=== PATIENT | female | born 1995 | race African-American/Black ===

== ENCOUNTER 2017-09-22 11:34 | Emergency (ER) | payer SELFPAY ==
[2017-09-22 13:31] LABS: Bilirubin Negative (Negative); Blood, Urine Negative (Negative); Glucose, Urine (Dipstick) Negative (Negative); Ketone, Urine 40 mg/dL (Negative); Nitrite Negative (Negative); Protein, Urine (Dipstick) Negative (Neg-Trace); Urobilinogen 0.2 mg/dL (0.2-1.0)
[2017-09-22 13:33] LABS: Bacteria/HPF Rare-Few HPF (None Seen); Hyaline Casts/LPF 0-3 HYALINE CAST LPF (0-3 Hyaline)
[2017-09-22 13:53] LABS: RBC/HPF 0-3 HPF (0-3)
[2017-09-22] MEDS ORDERED: Lidocaine 1% PF 5 ML VIAL ONE (14:14)
[2017-09-22] MEDS ORDERED: Azithromycin 250 MG TAB ONE (14:14)
[2017-09-22] MEDS ORDERED: cefTRIAXone\\ROCEPHIN 250 MG VIAL ONE (14:14)
== END 2017-09-22 14:22 | disposition home or self-care (01) ==
LOC: ERS 11:34
DX: N72 Inflammatory disease of cervix uteri (principal); F41.9 Anxiety disorder, unspecified; F32.9 Major depressive disorder, single episode, unspecified
CPT/HCPCS: 81003; 81015; 81025; 87086; 87480; 87491; 87510; 87591; 87660; 96372; J0696; J2001

== ENCOUNTER 2018-09-19 10:29 | Emergency (ER) | payer SELFPAY | END 2018-09-19 12:05 | disposition home or self-care (01) | LOC: ERS 10:29 | DX: J06.9 Acute upper respiratory infection, unspecified (principal) | CPT/HCPCS: 99283 ==

== ENCOUNTER 2018-09-22 01:00 | Emergency (ER) | payer SELFPAY ==
[2018-09-22] MEDS ORDERED: Dexamethasone 10 MG/ML VIAL ONE (01:23)
== END 2018-09-22 02:18 | disposition home or self-care (01) ==
LOC: ERS 01:00
DX: J06.9 Acute upper respiratory infection, unspecified (principal)
CPT/HCPCS: 87081; 87430; 96372; J1100

== ENCOUNTER 2019-08-07 12:23 | Emergency (ER) | payer SELFPAY ==
[2019-08-07] MEDS ORDERED: Acetaminophen 500 MG TAB ONE (13:27)
--- NOTE | 2019-08-07 13:43 | CT ---
CT Brain WO Con: 08/07/2019 1:23 PM CLINICAL HISTORY: Sudden headache. COMPARISON: None. FINDINGS: Hemorrhage: None. Ventricular system: Normal in size and morphology for the patient's age. Cerebral parenchyma: Normal Midline shift: None. Mass: No mass effect. Calvarium: Normal. Visualized Paranasal sinuses: Clear. IMPRESSION: No acute intracranial abnormalities.
== END 2019-08-07 14:20 | disposition left against medical advice (07) ==
LOC: SCSER 12:23
DX: R51 Headache (principal)
CPT/HCPCS: 70450

== ENCOUNTER 2019-08-07 18:43 | Emergency (ER) | payer SELFPAY | END 2019-08-07 20:20 | disposition home or self-care (01) | LOC: SCSER 18:43 | DX: R51 Headache (principal) | CPT/HCPCS: 99283 ==

== ENCOUNTER 2019-08-31 20:02 | Emergency (ER) | payer SELFPAY | END 2019-08-31 21:51 | disposition home or self-care (01) | LOC: ERS 20:02 | DX: K03.81 Cracked tooth (principal); F41.9 Anxiety disorder, unspecified; Z79.899 Other long term (current) drug therapy | CPT/HCPCS: 99282 ==

== ENCOUNTER 2020-10-05 14:57 | Emergency (ER) | payer SELFPAY ==
[2020-10-05] MEDS ORDERED: Ondansetron PF 4 MG/2 ML Vial ONE (15:28)
[2020-10-05 15:49] LABS: #Basophils 0.1 thou/uL (0.0-0.2); #Eosinphils 0.2 thou/uL (0.0-0.7); #Lymphocytes 2.5 thou/uL (1.20-3.40); #Monocytes 0.9 thou/uL (0.11-0.59); #Neutrophils 8.2 thou/uL (1.40-6.50); %Basophils 0.4 % (0.0-1.0); %Eosinophils 1.6 % (0.0-10.0); %Lymphocytes 21.1 % (21.0-51.0); %Monocytes 7.8 % (0.0-10.0); %Neutrophils 69.1 % (42.0-75.0); Hemoglobin 12.1 g/dL (12.0-16.0); Mean Corpuscular HGB CONC 33.7 g/dL (32.0-36.0); Mean Corpuscular Hemoglobin 28.1 pg (27.0-31.0); Mean Corpuscular Volume 83.2 fL (78.0-98.0); Platelet Count 357 thou/uL (130-400); RBC Distribution Width 14.7 % (11.5-14.5); White Blood Cell (WBC) Count 11.8 thou/uL (4.8-10.8)
[2020-10-05 16:03] LABS: ALT (SGPT) 8 U/L (8-55); AST (SGOT) 15 U/L (5-34); Albumin 3.8 g/dL (3.5-5.0); Alkaline Phosphatase 72 U/L (40-110); Anion Gap 14 mmol/L (10-20); BUN (Urea Nitrogen) 6 mg/dL (7.0-18.7); Bilirubin, Total 0.2 mg/dL (0.2-1.2); Calc. Creatinine Clearance 0 mL/min (70-130); Calcium 8.8 mg/dL (7.8-10.44); Carbon Dioxide 24 mmol/L (22-29); Chloride 103 mmol/L (98-107); Estimated GFR-MDRD Greater than 90; Globulin 3.9 g/dL (2.4-3.5); Glucose 90 mg/dL (70-105); Lipase 9 U/L (8-78); Potassium 3.9 mmol/L (3.5-5.1); Protein, Total 7.7 g/dL (6.0-8.3); Sodium 137 mmol/L (136-145)
[2020-10-05 16:56] LABS: Bacteria/HPF 2+ HPF (None Seen); Bilirubin Negative (Negative); Blood, Urine Negative (Negative); Clarity Turbid (Clear); Glucose, Urine (Dipstick) Normal (Negative); Ketone, Urine Negative (Negative); Leukocyte 25 Leu/uL (Negative); Mucous/LPF 1+ LPF (<2+); Nitrite Negative (Negative); Protein, Urine (Dipstick) Negative (Neg-Trace); RBC/HPF 0-3 HPF (0-3); Specific Gravity, Urine 1.018 (1.002-1.036); Urobilinogen Normal mg/dL (Less than 2)
== END 2020-10-05 17:16 | disposition home or self-care (01) ==
LOC: ERS 14:57
DX: E86.0 Dehydration (principal); N39.0 Urinary tract infection, site not specified; R11.2 Nausea with vomiting, unspecified; R19.7 Diarrhea, unspecified; F41.9 Anxiety disorder, unspecified; Z79.899 Other long term (current) drug therapy
CPT/HCPCS: 36415; 80053; 81003; 81015; 83690; 85025; 96374; J2405